=== PATIENT | female | born 1990 | race Caucasian/White ===

== ENCOUNTER 2018-12-21 10:08 | Emergency (ER) | payer OTHER ==
[2018-12-21] MEDS ORDERED: BUPIVACAINE 0.5% PF 10 ML VIAL SUBQ STA (11:11)
--- NOTE | 2018-12-21 11:44 | XRAY Report ---
Reason: middle finger injury Procedure Date: 12/21/2018 Accession Number: [id number] / [id number] Procedure: XR - Finger(s) LT CPT Code: FULL RESULT: EXAM: LEFT THIRD DIGIT RADIOGRAPHY EXAM DATE: 12/21/2018 11:32 AM. CLINICAL HISTORY: Middle finger injury. Finger pain. Limiting range of motion. COMPARISON: None. TECHNIQUE: 3 views. FINDINGS: Bones: Normal. No fracture or bone lesion. Joints: Normal. No subluxations. Soft Tissues: Soft tissue edema. No radiopaque foreign bodies. IMPRESSION: 1. No acute osseous abnormalities. RADIA
--- NOTE | 2018-12-21 12:14 | ED Physician Documentation ---
PD HPI UPPER EXT INJURY - Stated complaint Stated Complaint: L FINGER LAC - Chief complaint Chief Complaint: Laceration - History obtained from History obtained from: Patient - History of Present Illness Location: Left, Finger (middle) Type of injury: Laceration, Crush Where injury occurred: Work Timing - onset: Last night - Treatment prior to arrival Treatment prior to arrival: The laceration was glued with Dermabond. - Additonal information Additional information: The patient is a 28-year-old female who crushed her left middle finger when closing and old-fashion[employer] leaded glass window at [facility] last night. In addition to crushing her left middle finger, she suffered laceration to the volar aspect of the finger. A nurse involved with the camp cleaned the wound and repaired with Dermabond. The patient presents now concerned about the possibility of more extensive injury to her finger. She is right hand dominant. Tetanus status is up-to-date. Review of Systems Constitutional: denies: Fever Musculoskeletal: reports: Extremity pain (Left middle finger.) Neurologic: denies: Focal weakness, Numbness PD PAST MEDICAL HISTORY - Past Medical History Past Medical History: No - Past Surgical History Past Surgical History: Yes - Present Medications Home Medications: Ambulatory Orders Medication Instructions Recorded Confirmed No Known Home Medications 12/21/18 12/21/18 - Allergies Allergies/Adverse Reactions: Allergies Allergy/AdvReac Type Severity Reaction Status Date / Time No Known Drug Allergies Allergy Verified 12/21/18 10:38 - Social History Does the pt smoke?: No Smoking Status: Never smoker Does the pt drink ETOH?: Yes Substance Use and Type: Marijuana - Immunizations Immunizations are current?: Yes PD ED PE NORMAL - Vitals Vital signs reviewed: Yes (hypertensive) - General General: Alert and oriented X 3, Well developed/nourished - HEENT HEENT: Atraumatic - Respiratory Respiratory: No respiratory distress - Derm Derm: No rash - Extremities Extremities: Other (There is a 2 cm laceration on the volar side of the left middle finger, crossing the DIP joint. There is associated ecchymosis, and tenderness to palpation. Distal neurovascular is intact.) - Neuro Neuro: Alert and oriented X 3, No motor deficit, No sensory deficit Results - Vitals Vitals: Vital Signs - 24 hr 12/21/18 12:43 Heart Rate 72 Respiratory 16 Rate Blood Pressure 135/99 H O2 Saturation 98 Oxygen O2 Source Room air - Rads (name of study) Left middle finger Radiology: Prelim report reviewed, EMP read contemporaneously, See rad report (No acute osseous abnormality.) Procedures - Laceration (location) Left middle finger Length in cm: 2 Wound type: Flap Neurovascular status: Sensory intact, Motor intact, Vascular intact Anesthesia: Marcaine 0.5% (digital block) Wound Preparation: Hibiclens, Irrigated copiously NS, Wound explored, To the base. No: FB identified Skin layer closure: Nylon, Interrupted, Size #-0 - enter number (5), Sutures - enter # (3) Other: Patient tolerated well, No complications, Neurovascular intact, Dressing applied, Tetanus UTD Complexity: Simple PD MEDICAL DECISION MAKING - ED course Complexity details: reviewed results, re-evaluated patient, considered differential, d/w patient, other (L & I form was completed.) ED course: The patient's presentation is significant for a 2 cm laceration and associated crush injury of the left middle finger. X-ray examination reveals no acute bony abnormality. Treatment in the emergency department included digital block anesthesia using 0.5% bupivacaine. The wound was thoroughly cleaned and irrigated, and was repaired with 5-0 nylon simple sutures. Antibiotic ointment and dressing was applied. I discussed with her the expected course of injury, appropriate wound care and timing for suture removal, as well as potentially worrisome signs or symptoms that should prompt reevaluation in the emergency department. An L&I form was completed. Departure - Departure Disposition: 01 Home, Self Care Clinical Impression: Laceration Condition: Stable Instructions: ED Laceration Hand Comments: Keep the wound clean, and apply antibiotic ointment daily. You can use ibuprofen, up to 800 mg 3 times daily if needed for pain. Follow-up for suture removal in about 10 days. Return to the emergency department if any sign of infection, or otherwise worsening symptoms. Discharge Date/Time: 12/21/18 12:45
[2018-12-21] MEDS ORDERED: BACITRACIN ZINC OINT 14 GM TOP STA (12:31)
[2018-12-21 12:45] VITALS: BP 135/99
== END 2018-12-21 12:45 | disposition home or self-care (01) ==
LOC: ED 10:08
DX: S61.213A Laceration without foreign body of left middle finger without damage to nail, initial encounter (principal); S67.193A Crushing injury of left middle finger, initial encounter; W23.0XXA Caught, crushed, jammed, or pinched between moving objects, initial encounter; Y93.89 Activity, other specified; Y99.0 Civilian activity done for income or pay
CPT/HCPCS: 12001; 73140; 99283